=== PATIENT | male | born 1955 | race Caucasian/White ===

== ENCOUNTER → 2017-02-10 | Outpatient (CLI) | payer BC ==
--- NOTE | ~2017-02-10 | ECH ---
Transthoracic Echocardiography Report (TTE) Demographics Patient Name CONCETTA LANZA Date of Study 02/10/2017 Patient Number [id number] Visit Number [id number] Date of 1955 Room Number Accession Number [id number] Gender Male Age 61 year(s) Referring Monica Mahmood MD Set Off Press Operator Norma Ramires Physician RD Physician Interpreting Rolo MALCOLM Business Management Specialist Physician Ben Supervising Ordering Physician Monica Mahmood MD, MD/P Nurse Stress Sheetmetal Trades Worker Conclusions Contractility Score Summary Normal Left Ventricular contractility was noted. Summary Technically good exam. The estimated left ventricular ejection fraction is 60-65%. Diastolic assessment reveals Grade I diastolic dysfunction. No significant valvular abnormalities. Recommendation The patient will be given the results of this study by the physician who ordered the exam. Procedure Type of Study TTE procedure:Echo Complete SF. Procedure Date Date: 02/10/2017 Start: 01:15 PM Technical Quality: Good visualization Indications:PVCs. Appropriate Use Criteria: 9 Height: 66 inches Weight: 125 pounds BSA: 1.64 m Rhythm: NSR HR: 96 bpm BP: 140/80 mmHg M-Mode/2D Measurements LV Diastolic Dimension: 5.27 cm LV Systolic Dimension: 3.86 cm LV Septum Diastolic: 0.61 cm LV PW Diastolic: 0.48 cm AO Root Dimension: 2.91 cm Cardiac Output: 5.67 l/min LA Dimension: 2.67 cm Cardiac Index: 3.46 l/min*m RV Diastolic Dimension: 3.4 cm LA volume index: 27 ml/m LVOT: 2.08 cm LVOT VTI: 17.4 cm RV Base: 2.8 cm LV Stroke volume: 59.09 ml RV Mid: 1.9 cm LV Stroke volume index: 36.03 ml/m TAPSE: 2.5 cm TDI-S': 18 cm/s Doppler Measurements AV Peak Velocity: 1 m/s MV Peak E-Wave: 0.64 m/s AV Peak Gradient: 4 mmHg MV Peak A-Wave: 0.77 m/s AV Mean Gradient: 2.52 mmHg MV E/A Ratio: 0.82 LVOT Peak Velocity: 1 m/s MV P1/2t: 70.9 msec AV Area (Continuity):3.2 cm MV Deceleration Time: 236.2 msec TR Velocity:2.26 m/s MV Area (PHT): 3.1 cm TR Gradient:20.43 mmHg PV Peak Velocity: 0.85 m/s Estimated RAP:3 mmHg PV Peak Gradient: 2.86 mmHg Estimated RVSP: 23 mmHg Estimated PASP: 23.43 mmHg E' Septal Velocity: 0.09 m/s A' Septal Velocity: 0.11 m/s E' Lateral Velocity: 0.11 m/s A' Lateral Velocity: 0.14 m/s RA Area: 16.5 cm Findings Left Ventricle Normal left ventricle size and function. Diastolic assessment reveals Grade I diastolic dysfunction. Right Ventricle Normal right ventricle structure and function. Left Atrium Normal left atrial size. Right Atrium Normal right atrial size. Mitral Valve Normal mitral valve structure and function. Trivial mitral regurgitation by color Doppler. Aortic Valve Normal aortic valve structure and function. Tricuspid Valve Normal tricuspid valve structure and function. Mild tricuspid regurgitation by color Doppler. Normal pulmonary pressures. Pulmonic Valve Normal pulmonic valve structure and function. Pericardial Effusion No evidence of pericardial effusion. Miscellaneous Visualized portions of the aortic root and ascending aorta appear normal in size. Pleural Effusion No evidence of pleural effusion. Contractility Score LV regional wall motion:(0-Non visualized 1-Normal 2-Hypokinesis 3-Akinesis 4-Dyskinesis 5-Aneurysm) Signature
== END | disposition home or self-care (01) ==
LOC: CARD 13:00
DX: I49.3 Ventricular premature depolarization (principal); I51.89 Other ill-defined heart diseases